=== PATIENT | male | born 1965 ===

== ENCOUNTER 2018-11-05 20:45 | Emergency (ER) | payer SELFPAY ==
--- NOTE | 2018-11-05 21:22 | Emergency Department Record ---
History of Present Illness - General Stated Complaint: RT ABD PAIN/ Time Seen by Provider: 11/05/18 21:09 Source: Patient, Family Mode of Arrival: Ambulatory Limitations: No limitations - History of Present Illness Initial Comments: 53 yo male presents with right lower abdominal pain for one week. The pain started initially lifting a heavy tire. It felt like a knife stabbing him. The pain comes and goes. He has not noticed any hernia or bulge. He has pain with certain movements. No dysuria, nausea, vomiting, diarrhea, fever or rash. MD Complaint: Abdominal pain -: Week(s) Location: RLQ Radiation: RLQ Migration to: RLQ Severity: Moderate Quality: Aching Consistency: Constant Improves With: Rest Worsens With: Movement Context: Other (lifting) Associated Symptoms: Denies other symptoms - Related Data Home Medications Medication Instructions Recorded Confirmed Last Taken Hydrochlorothiazide [Hctz] 25 mg PO DAILY 11/05/18 11/05/18 Unknown Previous Rx's Medication Instructions Recorded Hydrochlorothiazide [Hctz] 25 mg PO DAILY #30 tablet 11/05/18 Allergies Allergy/AdvReac Type Severity Reaction Status Date / Time No Known Drug Allergies Allergy Verified 11/05/18 22:56 Review of Systems Constitutional: Denies: Chills, Fever, Weakness Eyes: Denies: Eye discharge ENT: Denies: Congestion, Throat pain Respiratory: Denies: Cough, Dyspnea Cardiovascular: Denies: Chest pain, Syncope Endocrine: Denies: Fatigue Gastrointestinal: Reports: Abdominal pain. Denies: Diarrhea, Nausea, Vomiting Musculoskeletal: Denies: Arthralgia, Back pain, Neck pain Skin: Denies: Bruising, Change in color, Rash Neurological: Denies: Confusion, Headache Psychiatric: Denies: Anxiety Hematological/Lymphatic: Denies: Easy bleeding, Easy bruising Physical Exam - General General Appearance: Alert, Oriented x3, Cooperative, No acute distress Limitations: No limitations - Head Head exam: Atraumatic, Normal inspection - Eye Eye exam: Normal appearance, PERRL. negative: Conjunctival injection - ENT ENT exam: Normal exam Ear exam: Normal external inspection Nasal Exam: Normal inspection Mouth exam: Normal external inspection - Neck Neck exam: Normal inspection - Respiratory Respiratory exam: Normal lung sounds bilaterally. negative: Respiratory distress - Cardiovascular Cardiovascular Exam: Regular rate, Normal rhythm, Normal heart sounds - GI/Abdominal GI/Abdominal exam: Soft, Tenderness (tender RLQ, obese but soft, no hernia). negative: Distended, Guarding, Hernia, Rebound, Rigid - Rectal Rectal exam: Deferred - exam: Deferred - Back Back exam: Reports: Normal inspection. Denies: CVA tenderness (R), CVA tenderness (L) - Neurological Neurological exam: Alert, Oriented X3 - Psychiatric Psychiatric exam: Normal affect, Normal mood - Skin Skin exam: Dry, Intact, Normal color, Warm Course Vital Signs 11/05/18 21:07 Temperature 97.6 F Pulse Rate [ 97 H Left] Respiratory 16 Rate Blood Pressure 201/133 [Left Arm] Pulse Ox 96 - Reevaluation(s) Reevaluation #1: The CBC and BMP are normal 11/05/18 22:22 11/05/18 22:[address] was negative for acute process Small umbilical hernia that is non tender He has been out of his BP medication since his doctors office closed A prescription was provided to restart at least his HCTZ Medical Decision Making - Lab Data Result diagrams: 11/05/18 21:32 11/05/18 21:32 Disposition Disposition: Discharge Clinical Impression: HTN (hypertension) Abdominal muscle strain Qualifiers: Encounter type: initial encounter Qualified Code(s): S39.011A - Strain of muscle, fascia and tendon of abdomen, initial encounter Disposition: Home, Self-Care Condition: (1) Good Instructions: Abdominal Pain (ED) Additional Instructions: Call your doctor for the next available follow up appointment Restart your hydrochlorothiazide blood pressure medication Review this ER visit and the tests performed with your family doctor Return to the ER for a recheck if worse, any new concerns or questions Take the prescriptions provided as directed Prescriptions: Hydrochlorothiazide [Hctz] 25 mg PO DAILY #30 tablet Time of Disposition: 22:56 Quality - Quality Measures Quality Measures: N/A - Blood Pressure Screening Does Patient Have Any of the Following: Active Dx of HTN Blood Pressure Classification: Hypertensive Reading Systolic Measurement: 201 Diastolic Measurement: 133 Screening for High Blood Pressure: Patient Exclusion, Hx of HTN [[id number]]
[2018-11-05 21:42] LABS: ABSOLUTE NEUTROPHIL COUNT 4.17; BASO % 0.8 % (0-6); EOS % 2.2 % (0-6); GRAN % 53.1 % (47-80); HEMATOCRIT 42.9 % (42.0-52.0); HEMOGLOBIN 14.4 gm/dl (14.0-18.0); LYMPH % 34.6 % (16-45); MEAN CELL VOLUME 88.3 fl (81-97); MEAN CORPUSCULAR HEMOGLOBIN 29.6 pg (27-33); MEAN CORPUSCULAR HGB CONC 33.6 g/dl (32-36); MEAN PLATELET VOLUME 10.8 fl (7.4-10.4); MONO % 9.3 % (0-9); PLATELET COUNT 220 K/uL (130-400); RED BLOOD COUNT 4.86 M/uL (4.40-5.70); RED CELL DISTRIBUTION WIDTH 14.2 % (11.5-14.5); WHITE BLOOD COUNT W/O DIFF 7.9 K/uL (4.2-12.2)
[2018-11-05 21:51] LABS: BLOOD UREA NITROGEN 28 mg/dL (6-20); EST GLOMERULAR FILTRATION RATE > 60 mL/min
[2018-11-05 21:53] LABS: GLUCOSE,RANDOM 147 mg/dL (74-109)
--- NOTE | 2018-11-07 19:39 | CT SCAN REPORT ---
EXAM: CT SCAN ABDOMEN/PELVIS W CONTRAST HISTORY: RIGHT LOWER ABDOMINAL PAIN. TECHNIQUE: Serial axial CT scan of the abdomen and pelvis was performed at 2.5 mm intervals from the dome of the diaphragm down to the pubic symphysis following the intravenous administration of 100 mL of Omnipaque-300. COMPARISON: No comparison CT's are available. FINDINGS: Lung windows of the lung bases demonstrate no CT evidence of a focal infiltrate or pleural effusion. The visualized heart size and contour is within normal limits. The liver demonstrates diffuse hepatic steatosis. No focal hepatic lesions are identified. The contour and size of the liver is within normal limits. The spleen, adrenal glands, gallbladder appear unremarkable. Within the mid body of the pancreas, there is a 1.7 cm cyst. This finding may represent a pseudocyst. Otherwise, the size, contour, and attenuation of the pancreas is within normal limits. There is no CT evidence of hydronephrosis or hydroureter. No renal or ureteral calculi are identified. Within the superior pole of the left kidney, there is a 1.8 cm exophytic cyst. The contour, caliber, and flow within the abdominal aorta is within normal limits. There is no CT evidence of retroperitoneal, pelvic, or inguinal lymphadenopathy. The bowel gas pattern is nonspecific and nonobstructive. Colonic diverticula are noted without CT evidence of diverticulitis. The appendix is clearly visualized and there is no CT evidence of appendicitis. There is a 2.2 cm fat-containing umbilical hernia. There is no CT evidence of free intraperitoneal fluid or free intraperitoneal air. The urinary bladder is unremarkable. The prostate demonstrates central calcifications. Bone windows demonstrate there is an irregular focus of sclerosis within the left iliac bone, which may represent a bone infarct. Clinical correlation is recommended. IMPRESSION: 1. A FAT-CONTAINING UMBILICAL HERNIA IS NOTED, DISCUSSED ABOVE. 2. DIFFUSE HEPATIC STEATOSIS. 3. CYSTIC LESION WITHIN THE PANCREAS MAY REPRESENT A PANCREATIC PSEUDOCYST. CLINICAL CORRELATION IS RECOMMENDED. 4. NO CT EVIDENCE OF AN ACUTE INTRAABDOMINAL PROCESS. JOB NUMBER: [id number] [facility]
== END 2018-11-05 23:19 | disposition home or self-care (01) ==
LOC: ER 20:45
DX: S39.011A Strain of muscle, fascia and tendon of abdomen, initial encounter (principal); X50.0XXA Overexertion from strenuous movement or load, initial encounter; I10 Essential (primary) hypertension; K42.9 Umbilical hernia without obstruction or gangrene
CPT/HCPCS: 99283; 99284; 85025; 80048; 74177; Q9967